=== PATIENT | male | born 1970 | race Caucasian/White ===

== ENCOUNTER 2018-06-18 16:00 | Emergency (ER) | payer SELFPAY ==
[~2018-06-18] VITALS: Ht 185.4 cm; Wt 122.7 kg
[2018-06-18 16:50] LABS: INFLUENZA A NONE DETECTED (NONE DETECT); INFLUENZA B NONE DETECTED (NONE DETECT)
[2018-06-18] MEDS ORDERED: AMOXICILLIN500 M2 PO ×2 (16:58→17:22)
[2018-06-18] MEDS ORDERED: TORADOL PO ×2 (16:59→17:22)
[2018-06-18 17:12] VITALS: BP 139/70
== END 2018-06-18 17:30 | disposition home or self-care (01) | DRG 153 ==
LOC: ED 16:00
PROVIDERS: Emergency Medicine
DX: J02.0 Streptococcal pharyngitis (principal); R50.9 Fever, unspecified; R05 Cough; R19.7 Diarrhea, unspecified